=== PATIENT | male | born 1955 | race Caucasian/White ===

== ENCOUNTER 2019-06-10 05:54 | Emergency (ER) | payer OTHER ==
[~2019-06-10] VITALS: Ht 167.6 cm; Wt 86.6 kg
[2019-06-10 05:59] VITALS: Ht 167.6 cm; Wt 86.6 kg
[2019-06-10 09:10] VITALS: BP 140/69
== END 2019-06-10 09:10 | disposition home or self-care (01) ==
LOC: ED 05:54
DX: H60.91 Unspecified otitis externa, right ear (principal); K21.9 Gastro-esophageal reflux disease without esophagitis